=== PATIENT | male | born 1985 | race Caucasian/White ===

== ENCOUNTER 2023-03-23 17:41 | Emergency (ER) | payer BC ==
--- NOTE | 2023-03-23 17:56 | ED ---
Recheck HPI - General Source: patient, family, RN notes reviewed <Jorge Clayton - Last Filed: 03/23/23 17:52> - General Source: RN notes reviewed, old records reviewed Mode of arrival: ambulatory Limitations: no limitations - History of Present Illness MD Complaint: abnormal lab (Elevated blood pressure) -: unknown Returns Today for: persistent/worsening pain related to initial visit Symptoms Since Prior Visit: no new symptoms Associated Symptoms: none Treatments Prior to Arrival: other (0) <Austin Landeros - Last Filed: 04/02/23 15:48> - General Stated Complaint: htn Time Seen by Provider: 03/23/23 17:52 - History of Present Illness Initial Comments: Patient is a 37-year-old male presented ER with a chief complaint of high blood pressures. Patient does not have a history of hypertension and is on no medication for it. Patient states today he started to feel a little different and checked his blood pressure reporting it was 170/120. Patient denies any chest pain, shortness of breath, dizzy/lightheadedness. (Jorge Clayton) This is a 37-year-old male to the ER today for evaluation of an elevated blood pressure. Patient is not blood pressure medication is concern for need to start taking blood pressure medications today. He has no other symptoms aside from the elevated blood pressure is causing him some significant anxiety. Denies chest pain or any other complaints. No medical history takes no medications denies drugs or alcohol (Austin Landeros) - Related Data Home Medications Medication Instructions Recorded Confirmed Cetirizine HCl [Zyrtec] 10 mg PO DAILY 03/23/23 03/23/23 Fluticasone Nasal [place] [Flonase 1 - 2 spr EA NOSTRIL BID PRN 03/23/23 03/23/23 Nasal [place]] Multivitamins, Thera [Multivitamin 1 tab PO DAILY 03/23/23 03/23/23 (formulary)] Previous Rx's Medication Instructions Recorded lisinopriL [Zestril] 10 mg PO DAILY #60 tab 03/23/23 Allergies Allergy/AdvReac Type Severity Reaction Status Date / Time No Known Allergies Allergy Verified 03/23/23 21:43 Review of Systems ROS Other: All systems not noted in ROS Statement are negative. <Jorge Clayton - Last Filed: 03/23/23 17:52> ROS Other: All systems not noted in ROS Statement are negative. <Austin Landeros - Last Filed: 04/02/23 15:48> ROS Statement: Those systems with pertinent positive or pertinent negative responses have been documented in the HPI. General Exam <Jorge Clayton - Last Filed: 03/23/23 17:52> General appearance: alert, in no apparent distress Head exam: Present: atraumatic, normocephalic, normal inspection Eye exam: Present: normal appearance, PERRL, EOMI. Absent: scleral icterus, conjunctival injection, periorbital swelling ENT exam: Present: normal exam, mucous membranes moist Neck exam: Present: normal inspection. Absent: tenderness, meningismus, lymphadenopathy Respiratory exam: Present: normal lung sounds bilaterally. Absent: respiratory distress, wheezes, rales, rhonchi, stridor Cardiovascular Exam: Present: regular rate, normal rhythm, normal heart sounds. Absent: systolic murmur, diastolic murmur, rubs, gallop, clicks GI/Abdominal exam: Present: soft, normal bowel sounds. Absent: distended, tenderness, guarding, rebound, rigid Extremities exam: Present: normal inspection, full ROM, normal capillary refill. Absent: tenderness, pedal edema, joint swelling, calf tenderness Back exam: Present: normal inspection Neurological exam: Present: alert, oriented X3, CN II-XII intact Psychiatric exam: Present: normal affect, normal mood Skin exam: Present: warm, dry, intact, normal color. Absent: rash <Austin Landeros - Last Filed: 04/02/23 15:48> - General Exam Comments Initial Comments: Visual Physical Exam Vital signs reviewed General: Well-appearing, nontoxic, no acute distress. Head: Normocephalic, atraumatic Eyes: PERRLA, EOMI ENT: Airway patent Chest: Nonlabored breathing Skin: No visual rash, normal skin tone Neuro: Alert and oriented 3 Musculoskeletal: No gross abnormalities (Jorge Clayton) Course <Austin Landeros - Last Filed: 04/02/23 15:48> Vital Signs 03/23/23 03/23/23 03/23/23 18:01 19:33 21:38 Temperature 98.8 F Pulse Rate 106 H 90 Respiratory 22 18 Rate Blood Pressure 153/106 188/96 164/97 O2 Sat by Pulse 99 100 Oximetry - Reevaluation(s) Reevaluation #1: Medical record is reviewed (Austin Landeros) Reevaluation #2: Patient symptoms improved (Austin Landeros) Reevaluation #3: Patient informed results and questions answered (Austin Landeros) Reevaluation #4: Was pt. sent in by a medical professional or institution (, [facility], [employer] AIDE, urgent care, hospital, or penitentiary...) When possible be specific @ -no Did you speak to anyone other than the patient for history (EMS, parent, family, police, friend...)? What history was obtained from this source @ -no Did you review nursing and triage notes (agree or disagree)? Why? @ -agree Are old charts reviewed (outside hosp., previous admission, EMS record, old EKG, old radiological studies, urgent care reports/EKG's, penitentiary records)? Report findings @ -yes Differential Diagnosis (chest pain, altered mental status, abdominal pain women, abdominal pain men, vaginal bleeding, weakness, fever, dyspnea, syncope, headache, dizziness, GI bleed, back pain, seizure, CVA, palpatations, mental health, musculoskeletal)? @ -prior EKG interpreted by me (3pts min.). @ -yes X-rays interpreted by me (1pt min.). @ -no CT interpreted by me (1pt min.). @ -no U/S interpreted by me (1pt. min.). @ -no What testing was considered but not performed or refused? (CT, X-rays, U/S, labs)? Why? @ -none What meds were considered but not given or refused? Why? @ -none Did you discuss the management of the patient with other professionals ( professionals i.e. JANETTE Red, [employer] AIDE, lab, RT, psych nurse, addiction social worker, laundry housekeeping aide, teacher, chief information officer, protective services case worker)? Give summary @ -no Was smoking cessation discussed for >3mins.? @ -no Were there social determinants of health that impacted care today? How? (Homelessness, low income, unemployed, alcoholism, drug addiction, transportation, low edu. Level, literacy, decrease access to med. care, senior care, rehab)? @ -none Was there de-escalation of care discussed even if they declined (Discuss DNR or withdrawal of care, Hospice)? DNR status @ -no What co-morbidities impacted this encounter? (DM, HTN, Smoking, COPD, CAD, Cancer, CVA, ARF, Chemo, Hep., AIDS, mental health diagnosis, sleep apnea, morbid obesity)? @ -none Was patient admitted / discharged? Hospital course, mention meds given and route, prescriptions, significant lab abnormalities, going to OR and other pertinent info. @ - 37 male to the ER today for evaluation of significant elevated blood pressure. Patient be started on outpatient blood pressure medication, feels improved and well here in the ER does admit to some mild anxiety otherwise has no complaints and can be discharged home Was critical care preformed (if so, how long)? @ -no Undiagnosed new problem with uncertain prognosis? @ -no Drug Therapy requiring intensive monitoring for toxicity (Heparin, Nitro, Insulin, Cardizem)? @ -no Were any procedures done? @ -no Diagnosis/symptom? @ -Hypertension Acute, or Chronic, or Acute on Chronic? @ -Acute Uncomplicated (without systemic symptoms) or Complicated (systemic symptoms)? @ -Complicated Side effects of treatment? @ -no Exacerbation, Progression, or Severe Exacerbation? @ -exacerbation Poses a threat to life or bodily function? How? (Chest pain, [place], [place], pneumonia, PE, COPD, DKA, ARF, appy, cholecystitis, CVA, Diverticulitis, Homicidal, Suicidal, threat to staff... and all critical care pts) @ -yes with significantly elevated blood pressure (Austin Landeros) Medical Decision Making <Jorge Clayton - Last Filed: 03/23/23 17:52> - Lab Data Result diagrams: 03/23/23 20:19 03/23/23 20:19 - EKG Data -: EKG Interpreted by Me (EKG is sinus 78 MI 133 QRS 113 QTC 399) <Austin Landeros - Last Filed: 04/02/23 15:48> - Medical Decision Making I performed the quick note portion of the exam. Electronically signed by Jorge Clayton PA-C (Jorge Clayton) 37 male to the ER today for evaluation of significant elevated blood pressure. Patient be started on outpatient blood pressure medication, feels improved and well here in the ER does admit to some mild anxiety otherwise has no complaints and can be discharged home (Austin Landeros) - Lab Data Lab Results 03/23/23 03/23/23 03/23/23 Range/Units 20:19 20:19 20:19 WBC 15.4 H (3.8-10.6) k/uL RBC 5.57 (4.30-5.90) m/uL Hgb 17.8 H (13.0-17.5) gm/dL Hct 49.6 (39.0-53.0) % MCV 89.0 (80.0-100.0) fL MCH 31.9 (25.0-35.0) pg MCHC 35.8 (31.0-37.0) g/dL RDW 13.2 (11.5-15.5) % Plt Count 227 (150-450) k/uL MPV 10.2 Neutrophils % 81 % Lymphocytes % 14 % Monocytes % 4 % Eosinophils % 1 % Basophils % 0 % Neutrophils # 12.4 H (1.3-7.7) k/uL Lymphocytes # 2.1 (1.0-4.8) k/uL Monocytes # 0.6 (0-1.0) k/uL Eosinophils # 0.1 (0-0.7) k/uL Basophils # 0.1 (0-0.2) k/uL Sodium 138 (137-145) mmol/L Potassium 4.8 (3.5-5.1) mmol/L Chloride 99 (98-107) mmol/L Carbon Dioxide 22 (22-30) mmol/L Anion Gap 17 mmol/L BUN 10 (9-20) mg/dL Creatinine 0.72 (0.66-1.25) mg/dL Est GFR (CKD-EPI)AfAm >90 (>60 ml/min/1.73 sqM) Est GFR (CKD-EPI)NonAf >90 (>60 ml/min/1.73 sqM) Glucose 98 (74-99) mg/dL Calcium 9.8 (8.4-10.2) mg/dL Phosphorus 3.2 (2.5-4.5) mg/dL Magnesium 2.0 (1.6-2.3) mg/dL Total Bilirubin 1.0 (0.2-1.3) mg/dL AST 31 (17-59) U/L ALT 39 (4-49) U/L Alkaline Phosphatase 70 (38-126) U/L Troponin I <0.012 (0.000-0.034) ng/mL NT-Pro-B Natriuret Pep <20 pg/mL Total Protein 8.6 H (6.3-8.2) g/dL Albumin 5.0 (3.5-5.0) g/dL Disposition <Jorge Clayton - Last Filed: 03/23/23 17:52> Is patient prescribed a controlled substance at d/c from ED?: No Time of Disposition: 21:45 <Austin Landeros - Last Filed: 04/02/23 15:48> Clinical Impression: Hypertension, Anxiety reaction Disposition: HOME SELF-CARE Condition: Good Instructions (If sedation given, give patient instructions): Hypertension (ED) Prescriptions: lisinopriL [Zestril] 10 mg PO DAILY #60 tab Referrals: Austin Bui MD [Primary Care Provider] - 1-2 days
[2023-03-23 18:28] VITALS: TEMP 98.8
[2023-03-23] MEDS ORDERED: LORazepam 2 MG/ML INJ IV STA (19:34)
[2023-03-23] MEDS ORDERED: SODIUM CHLORIDE 0.9% 500 ML 500 ML IV STA (19:34)
[2023-03-23 20:55] LABS: Basophils # (A) 0.1 k/uL (0-0.2); Basophils % (A) 0 %; Eosinophils # (A) 0.1 k/uL (0-0.7); Eosinophils % (A) 1 %; HCT 49.6 % (39.0-53.0); HGB 17.8 gm/dL (13.0-17.5); Lymphocytes # (A) 2.1 k/uL (1.0-4.8); Lymphocytes % (A) 14 %; MCH 31.9 pg (25.0-35.0); MCHC 35.8 g/dL (31.0-37.0); Mean Platelet Volume 10.2; Monocytes # (A) 0.6 k/uL (0-1.0); Monocytes % (A) 4 %; Neutrophils # (A) 12.4 k/uL (1.3-7.7); Neutrophils % (A) 81 %; Platelet Count 227 k/uL (150-450); RBC 5.57 m/uL (4.30-5.90); RDW 13.2 % (11.5-15.5); WBC 15.4 k/uL (3.8-10.6)
[2023-03-23 21:09] LABS: ALT 39 U/L (4-49); AST 31 U/L (17-59); African American GFR (CKD) >90 (>60 ml/min/1.73 sqM); Alkaline Phosphatase 70 U/L (38-126); Anion Gap 17 mmol/L; Blood Urea Nitrogen 10 mg/dL (9-20); Calcium 9.8 mg/dL (8.4-10.2); Carbon Dioxide 22 mmol/L (22-30); Chloride 99 mmol/L (98-107); Glucose 98 mg/dL (74-99); Non-African American GFR(CKD) >90 (>60 ml/min/1.73 sqM); Phosphorus 3.2 mg/dL (2.5-4.5); Potassium 4.8 mmol/L (3.5-5.1); Sodium 138 mmol/L (137-145); Total Protein 8.6 g/dL (6.3-8.2)
[2023-03-23 21:15] LABS: NT-Pro-B-Type Natriuretic Pept <20 pg/mL
[2023-03-23] MEDS ORDERED: lisinopriL 10 MG TAB PO STA (21:44)
[2023-03-23 21:45] VITALS: BP 164/97; PULSE 90; RESP 18
== END 2023-03-23 22:07 | disposition home or self-care (01) ==
LOC: EC 17:41
DX: I10 Essential (primary) hypertension (principal); F41.1 Generalized anxiety disorder
CPT/HCPCS: 99284 ×2; 96374 ×2; 96361 ×2; 36415; 93005; 83880; 80053; 83735; 84100; 84484; 85025; J2060